=== PATIENT | male | born 1990 | race Caucasian/White ===

== ENCOUNTER 2018-11-17 22:31 | Emergency (ER) | payer OTHER ==
[~2018-11-17] VITALS: Ht 175.3 cm; Wt 63.5 kg
[2018-11-17 22:31] VITALS: BP 131/90
[~2018-11-17 22:31] MED LIST: ALBUTEROL; NACL 0.9% 1,000 ML IV SCH
--- NOTE | 2018-11-17 22:31 | NUR ---
TO BED # 01, BROUGHT IN BY AMBULANCE WITH C/O GENERALIZED ABD PAIN, DIZZINESS, DRINKING ALL DAY SINCE YESTERDAY, DENIES DRUGS USED
--- NOTE | 2018-11-17 22:56 | NUR ---
28 Y/O MALE BIB [facility] C/O ABDOMINAL PAIN. PER REPORT FROM EMT, PT HAS BEEN DRINKING SINCE YESTERDAY, ADMITTED HIMSELF TO [facility] FOR N/V/D, DECIDED TO AMA. DRANK UNKNOWN AMOUNT OF ALCOHOL TODAY AND HAD N/V/D. PT STATES HIS ABDOMEN HURTS, BS ACTIVE ON ALL QUADRANTS, NO DISTENSION. PT VSS. ERMD AWARE. WILL CONTINUE TO MONITOR.
--- NOTE | 2018-11-17 23:15 | NUR ---
PT GIVEN 1000ML NS VIA IV ON L AC.
[2018-11-17 23:36] LABS: BASOPHILS # (AUTO) 0.1 K/uL (0.00-0.22); BASOPHILS % (AUTO) 1.2 % (0.0-2.0); EOSINOPHILS % (AUTO) 0.6 % (0.0-4.0); HEMOGLOBIN 14.8 g/dL (12.0-18.0); LYMPHOCYTES # (AUTO) 1.9 K/uL (2.0-11.5); LYMPHOCYTES % (AUTO) 31.8 % (20.5-51.1); MEAN CORPUSCULAR HEMOGLOBIN 30 pg (27-31); MEAN CORPUSCULAR HGB CONC 34 g/dL (33-37); MEAN CORPUSCULAR VOLUME 89.6 fL (80-94); MONOCYTES # (AUTO) 0.8 K/uL (0.8-1.0); MONOCYTES % (AUTO) 12.7 % (1.7-9.3); NEUTROPHILS # (AUTO) 3.3 K/uL (1.8-7.7); NEUTROPHILS % (AUTO) 53.7 % (42.2-75.2); PLATELET COUNT (AUTO) 322 K/uL (140-450); RED BLOOD CELL COUNT(AUTO) 4.91 MIL/uL (4.20-6.10); WHITE BLOOD COUNT (AUTO) 6.1 K/uL (4.8-10.8)
[2018-11-17 23:46] LABS: CARBON DIOXIDE 23.7 mmol/L (21-32); POTASSIUM 3.7 mmol/L (3.5-5.1)
[2018-11-17 23:54] LABS: TOTAL BILIRUBIN 0.2 mg/dL (0.0-1.0)
--- NOTE | 2018-11-17 23:55 | NUR ---
1000ML NS ADMINISTERED. PT VSS. WILL CONTINUE TO MONITOR
[2018-11-18 00:27] LABS: BARBITURATE, URINE NEG. ng/ml (NEG <=200); BENZODIAZEPINE, URINE NEG. ng/mL (NEG <=200); CANNABINOID, URINE POS. ng/mL (NEG <=50); COCAINE, URINE NEG. ng/mL (NEG <=300); OPIATE, URINE NEG. ng/mL (NEG <=2000); PHENCYCLIDINE SCREEN,URINE NEG. ng/mL (NEG <=25)
--- NOTE | 2018-11-18 01:35 | NUR ---
PT ASLEEP ON BED. PT VSS. ERMD AWARE. WILL CONTINUE TO MONITOR.
--- NOTE | 2018-11-18 06:49 | NUR ---
PT GIVEN 1000ML NS VIA L AC.
[2018-11-18 07:05] VITALS: BP 91/48
--- NOTE | 2018-11-18 07:08 | NUR ---
PT DISCHARGED WITH PAPERWORK. VERBALIZED UNDERSTANDING OF D/C INSTRUCTIONS. TOLD PT TO FOLLOW UP WITH PCP AND WHEN TO RETURN TO ED. PT VSS. ALL QUESTIONS ANSWERED.
[2018-11-18] MEDS ORDERED: NACL 0.9% 1,000 ML IV SCH (09:00)
--- NOTE | 2018-11-20 07:18 | NUR ---
Late entry. Clarification of fluids given. 1000ml 0.9 NS IV started at 2300 and completed at 2400. 1000ml 0.9 NS IV started at 0640 and completed at 0740.
== END 2018-11-18 07:08 | disposition home or self-care (01) ==
LOC: MED 22:31
DX: F10.129 Alcohol abuse with intoxication, unspecified (principal); Y90.8 Blood alcohol level of 240 mg/100 ml or more; Z79.51 Long term (current) use of inhaled steroids; Z98.890 Other specified postprocedural states
CPT/HCPCS: 36415; 80053; 80305; 81002; 83690; 85025; 99283; G0482; J7030

== ENCOUNTER 2022-06-15 20:55 | Emergency (ER) | payer OTHER ==
[~2022-06-15] VITALS: Ht 175.3 cm; Wt 63.5 kg
[~2022-06-15 20:55] MED LIST changes: -NACL 0.9% 1,000 ML IV SCH
[2022-06-15 21:17] VITALS: BP 134/78
--- NOTE | 2022-06-15 21:23 | NUR ---
TO LOBBY FOLLOWING TRIAGE
== END 2022-06-16 00:07 | disposition left against medical advice (07) ==
LOC: MED 20:55
DX: R68.83 Chills (without fever) (principal); R61 Generalized hyperhidrosis; Z53.21 Procedure and treatment not carried out due to patient leaving prior to being seen by health care provider
CPT/HCPCS: 99281